=== PATIENT | female | born 1965 | race Caucasian/White ===

== ENCOUNTER 2023-06-01 05:58 | Day surgery (SDC) | payer BC ==
[~2023-06-01 05:58] MED LIST: Lactated Ringers 1,000 ML IV ONE
[2023-06-01] MEDS ORDERED: Lactated Ringers 1,000 ML IV SCH (06:30)
[2023-06-01] MEDS ORDERED: Propofol 200 MG/20 ML SDV ONE (06:50)
[2023-06-01] MEDS ORDERED: Midazolam 1 MG/ML 2 ML SDV ONE (06:50)
[2023-06-01] MEDS ORDERED: fentaNYL 50 MCG/ML SDV ONE (06:50)
[2023-06-01] MEDS ORDERED: Glycopyrrolate 0.2 MG/ML 2 ML SDV IVPUSH ONE (07:00)
[2023-06-01] MEDS ORDERED: Cyanocobalamin (Vitamin B12) 1,000 MCG/ML SDV IM ONE (07:00)
[2023-06-01] MEDS ORDERED: MVI, Adult with Vitamin K 10 ML, Thiamine 200 MG, Zinc/Copper/Manganese/Selenium 1 ML i... IV ONE ×4 (07:15)
== END 2023-06-01 10:00 | disposition home or self-care (01) ==
LOC: JP.SDS 05:58
PROVIDERS: ATTEND Surgery
DX: K91.850 Pouchitis (principal); K31.1 Adult hypertrophic pyloric stenosis; K31.89 Other diseases of stomach and duodenum; R60.9 Edema, unspecified; K21.9 Gastro-esophageal reflux disease without esophagitis; I10 Essential (primary) hypertension; F32.A Depression, unspecified; F41.9 Anxiety disorder, unspecified; Z98.84 Bariatric surgery status; Z88.5 Allergy status to narcotic agent; Z91.041 Radiographic dye allergy status; Z88.8 Allergy status to other drugs, medicaments and biological substances
CPT/HCPCS: 43235; J2250; J2704; J3010; J3411; J3420; J3490; J7120

== ENCOUNTER 2023-06-11 07:30 | Inpatient (IN) | payer BC ==
[2023-06-12] MEDS ORDERED: Scopolamine 1.5 MG Transdermal Patch TOP ONE (05:26)
[2023-06-12] MEDS ORDERED: Celecoxib 200 MG Cap PO ONE (05:26)
[2023-06-12] MEDS ORDERED: cefOXitin 2 GM in Sodium Chloride 0.9% 50 ML IV ONE ×2 (05:27→07:30)
[2023-06-12] MEDS ORDERED: Dextrose 5%-Lactated Ringers 1,000 ML IV SCH (05:30)
[2023-06-12] MEDS ORDERED: Bupivacaine 0.5% 50 ML MDV ONE (06:42)
[2023-06-12] MEDS ORDERED: Lidocaine 1% with EPINEPHrine 1:100,000 50 ML MDV ONE (06:42)
[2023-06-12] MEDS ORDERED: fentaNYL 250 MCG/5 ML SDV ONE ×2 (07:12→07:33)
[2023-06-12] MEDS ORDERED: Neostigmine Methylsulfate 1 MG/ML 5 ML Syringe ONE (07:15)
[2023-06-12] MEDS ORDERED: Glycopyrrolate 0.2 MG/ML 5 ML MDV ONE (07:15)
[2023-06-12] MEDS ORDERED: Succinylcholine 200 MG/10 ML MDV ONE (07:15)
[2023-06-12] MEDS ORDERED: Rocuronium 50 MG/5 ML Vial ONE (07:15)
[2023-06-12] MEDS ORDERED: Dexamethasone 4 MG/ML SDV ONE (07:15)
[2023-06-12] MEDS ORDERED: Propofol 200 MG/20 ML SDV ONE (07:15)
[2023-06-12] MEDS ORDERED: Ondansetron 4 MG/2 ML SDV ONE (07:15)
[2023-06-12] MEDS ORDERED: HYDROmorphone/Normal Saline 6 MG/30 ML PCA Vial IV PRN (07:16)
[2023-06-12] MEDS ORDERED: Ketamine 500 MG/5 ML MDV IV SCH (07:30)
[2023-06-12] MEDS ORDERED: Ketamine 18 MG in Sodium Chloride 0.9% 19.82 ML IV SCH (07:30)
[2023-06-12] MEDS ORDERED: Naloxone 0.4 MG/ML SDV IV PRN (08:00)
[2023-06-12] MEDS: Meropenem 500 MG SDV ONE ×2 (08:01→10:09)
[2023-06-12] MEDS ORDERED: fentaNYL 100 MCG/2 ML SDV ONE (08:28)
[2023-06-12] MEDS ORDERED: Lactated Ringers 1,000 ML ONE ×2 (08:39)
[2023-06-12] MEDS: Tranexamic Acid 1,000 MG in Sodium Chloride 0.9% 50 ML IV ONE ×2 (09:47→11:54)
[2023-06-12] MEDS ORDERED: Tranexamic Acid 1,000 MG in Sodium Chloride 0.9% 500 ML IV ONE (10:00)
[2023-06-12] MEDS ORDERED: Tranexamic Acid 1,000 MG in Sodium Chloride 0.9% 50 ML IV ONE (10:00)
[2023-06-12] MEDS ORDERED: Linezolid 600 MG/300 ML Premix Bag IRR ONE (10:09)
[2023-06-12] MEDS ORDERED: Metoclopramide 10 MG/2 ML SDV IVPUSH PRN (12:00)
[2023-06-12] MEDS ORDERED: Cyclobenzaprine 10 MG Tab PO PRN (12:00)
[2023-06-12] MEDS ORDERED: Labetalol 20 MG/4 ML Syringe IVPUSH PRN (12:00)
[2023-06-12] MEDS ORDERED: diphenhydrAMINE 50 MG/ML SDV IVPUSH PRN (12:00)
[2023-06-12] MEDS ORDERED: Ondansetron 4 MG/2 ML SDV IVPUSH PRN (12:00)
[2023-06-12] MEDS ORDERED: Acetaminophen 500 MG Tab PO PRN (12:00)
[2023-06-12] MEDS ORDERED: hydrOXYzine HCL 100 MG/2 ML SDV IM PRN (12:00)
[2023-06-12] MEDS ORDERED: Pantoprazole 40 MG Vial IVPUSH SCH (12:00)
[2023-06-12] MEDS: SCOPOLAMINE PATCH CHECK TOP SCH (13:41)
[2023-06-12] MEDS: cefOXitin 2 GM in Sodium Chloride 0.9% 50 ML IV SCH ×2 (14:38→20:32)
[2023-06-12] MEDS: Acetaminophen 500 MG Tab PO SCH ×2 (14:38→21:43)
[2023-06-12] MEDS: MVI, Adult with Vitamin K 10 ML, Thiamine 200 MG, Zinc/Copper/Manganese/Selenium 1 ML i... IV SCH ×4 (15:23)
[2023-06-12] MEDS: Heparin Sodium 5,000 Units/ML Vial SUBCUT SCH (20:32)
[2023-06-12] MEDS: Dextrose 5%-Lactated Ringers 1,000 ML IV SCH (21:44)
[2023-06-13] MEDS: cefOXitin 2 GM in Sodium Chloride 0.9% 50 ML IV SCH ×4 (02:44→19:37)
[2023-06-13] MEDS ORDERED: methylPREDNISolone Sodium Succinate 125 MG/2 ML SDV IVPUSH ONE (03:45)
[2023-06-13] MEDS ORDERED: Iopamidol 612 MG/ML 30 ML SDV PO ONE (04:00)
[2023-06-13] MEDS: Dextrose 5%-Lactated Ringers 1,000 ML IV SCH (04:03)
[2023-06-13 04:19] LABS: BASOPHILS PERCENT AUTO 0.1 % (0.1-1.3); HEMATOCRIT 27.9 % (34.3-46.0); HEMOGLOBIN 9.6 g/dL (11.2-15.5); IMMATURE GRAN ABSOLUTE AUTO 0.05 K/uL (0.00-0.23); IMMATURE GRAN PERCENT AUTO 0.3 % (0.0-0.7); LYMPHOCYTES ABSOLUTE AUTO 1.05 K/uL (0.8-3.3); LYMPHOCYTES PERCENT AUTO 6.3 % (11.4-47.7); MEAN CORPUSCULAR HGB CONC 34.4 g/dL (31.6-35.5); MEAN CORPUSCULAR VOLUME 95.9 fL (81.4-99.0); MONOCYTES ABSOLUTE AUTO 1.21 K/uL (0.20-0.90); MONOCYTES PERCENT AUTO 7.3 % (3.3-12.6); NEUTROPHILS ABSOLUTE AUTO 14.25 K/uL (1.0-7.6); PLATELET COUNT,PLT 173 K/uL (130-375); RED BLOOD CELL COUNT 2.91 M/uL (3.77-5.24); WHITE BLOOD CELL COUNT,WBC 16.6 K/uL (3.2-11.0)
[2023-06-13 04:53] LABS: BASOPHILS ABSOLUTE AUTO 0.01 K/uL (0.00-0.10)
[2023-06-13 04:58] LABS: ALANINE AMINOTRANSFERASE,ALT 53 U/L (12-78); ALBUMIN 2.9 g/dL (3.4-5.0); ALKALINE PHOSPHATASE 40 U/L (46-116); ASPARTATE AMNIOTRANSFERASE,AST 86 U/L (15-37); BILIRUBIN TOTAL 0.5 mg/dL (0.2-1.0); BLOOD UREA NITROGEN,BUN 9 mg/dL (7-18); CALCIUM 8.5 mg/dL (8.5-10.1); CARBON DIOXIDE,CO2 27 mmol/L (21-32); CHLORIDE,CL 101 mmol/L (100-108); EST CRCL DRUG DOSING (CG) 59.63 mL/min; ESTIMATED GFR 65 mL/min (>60); GLUCOSE RANDOM 169 mg/dL (74-106); MAGNESIUM 1.7 mg/dL (1.8-2.4); PHOSPHORUS 3.2 mg/dL (2.5-4.9); POTASSIUM,K 4.2 mmol/L (3.6-5.2); PRO B-TYPE NATRIUR PEPT,BNPPRO 119 pg/mL (5-125); PROTEIN TOTAL,TP 5.9 g/dL (6.4-8.2); SODIUM,NA 135 mmol/L (140-148)
[2023-06-13 05:00] LABS: ANION GAP 11.2 mmol/L (5.0-14.0)
[2023-06-13] MEDS: Acetaminophen 500 MG Tab PO SCH ×3 (05:50→21:36)
[2023-06-13] MEDS ORDERED: Ondansetron 4 MG Tab.DIS PO PRN (07:41)
[2023-06-13] MEDS: Cyclobenzaprine 10 MG Tab PO SCH ×3 (08:00→23:03)
[2023-06-13] MEDS: Heparin Sodium 5,000 Units/ML Vial SUBCUT SCH ×2 (08:01→19:34)
[2023-06-13] MEDS: Celecoxib 200 MG Cap PO SCH ×2 (08:02→21:37)
[2023-06-13] MEDS: Losartan 50 MG Tab PO SCH (08:03)
[2023-06-13] MEDS: Hydrochlorothiazide 12.5 MG Cap PO SCH (08:04)
[2023-06-13] MEDS: Sertraline 50 MG Tab PO SCH (08:05)
[2023-06-13] MEDS: SCOPOLAMINE PATCH CHECK TOP SCH (08:06)
[2023-06-13] MEDS: oxyCODONE 5 MG Tab PO PRN ×4 (08:59→23:03)
[2023-06-13] MEDS: Magnesium Sulfate/Water 2 GM in Premix Bag 1 BAG IV SCH ×3 (09:51→21:37)
[2023-06-13] MEDS: Pantoprazole 40 MG Delayed-Release Granules 1 Packet PO SCH (12:24)
[2023-06-13] MEDS: MVI, Adult with Vitamin K 10 ML, Thiamine 200 MG, Zinc/Copper/Manganese/Selenium 1 ML i... IV SCH ×4 (16:05)
[2023-06-14] MEDS: oxyCODONE 5 MG Tab PO PRN ×4 (04:05→20:31)
[2023-06-14] MEDS: Magnesium Sulfate/Water 2 GM in Premix Bag 1 BAG IV SCH ×4 (04:06→22:56)
[2023-06-14 04:22] LABS: HEMATOCRIT 21.4 % (34.3-46.0); HEMOGLOBIN 7.1 g/dL (11.2-15.5); MEAN CORPUSCULAR HEMOGLOBIN 32.3 pg (31.6-35.5); MEAN CORPUSCULAR HGB CONC 33.2 g/dL (31.6-35.5); MEAN CORPUSCULAR VOLUME 97.3 fL (81.4-99.0); RED BLOOD CELL COUNT 2.2 M/uL (3.77-5.24); WHITE BLOOD CELL COUNT,WBC 12.4 K/uL (3.2-11.0)
[2023-06-14 04:50] LABS: A/G RATIO 0.8 (1.2-2.2); ALANINE AMINOTRANSFERASE,ALT 35 U/L (12-78); ALBUMIN 2.4 g/dL (3.4-5.0); ALKALINE PHOSPHATASE 38 U/L (46-116); ANION GAP 5.3 mmol/L (5.0-14.0); ASPARTATE AMNIOTRANSFERASE,AST 51 U/L (15-37); BILIRUBIN TOTAL 0.3 mg/dL (0.2-1.0); BLOOD UREA NITROGEN,BUN 7 mg/dL (7-18); CALCIUM 8.1 mg/dL (8.5-10.1); CARBON DIOXIDE,CO2 29 mmol/L (21-32); CHLORIDE,CL 106 mmol/L (100-108); CREATININE 0.7 mg/dL (0.6-1.0); EST CRCL DRUG DOSING (CG) 85.19 mL/min; ESTIMATED GFR 100 mL/min (>60); GLUCOSE RANDOM 97 mg/dL (74-106); PHOSPHORUS 3.3 mg/dL (2.5-4.9); PROTEIN TOTAL,TP 5.3 g/dL (6.4-8.2); SODIUM,NA 140 mmol/L (140-148)
[2023-06-14] MEDS: Acetaminophen 500 MG Tab PO SCH ×3 (05:54→22:56)
[2023-06-14] MEDS ORDERED: Cyanocobalamin (Vitamin B12) 1,000 MCG/ML SDV IM ONE (09:00)
[2023-06-14] MEDS: Cyclobenzaprine 10 MG Tab PO SCH ×3 (10:14→23:01)
[2023-06-14] MEDS: Docusate Sodium 100 MG Cap PO SCH ×2 (10:19→20:32)
[2023-06-14] MEDS: Losartan 50 MG Tab PO SCH (10:20)
[2023-06-14] MEDS: Bisacodyl 5 MG Tab PO SCH ×2 (10:20→20:31)
[2023-06-14] MEDS: Hydrochlorothiazide 12.5 MG Cap PO SCH (10:21)
[2023-06-14] MEDS: SCOPOLAMINE PATCH CHECK TOP SCH (10:22)
[2023-06-14] MEDS: Sertraline 50 MG Tab PO SCH (10:23)
[2023-06-14] MEDS: Dextrose 5%-Lactated Ringers 1,000 ML IV SCH (11:20)
[2023-06-14] MEDS: hydrOXYzine HCl 25 MG Tab PO PRN ×2 (12:22→19:28)
[2023-06-14] MEDS: Pantoprazole 40 MG Delayed-Release Granules 1 Packet PO SCH (12:23)
[2023-06-14 17:00] LABS: BASOPHILS ABSOLUTE AUTO 0.03 K/uL (0.00-0.10); BASOPHILS PERCENT AUTO 0.3 % (0.1-1.3); EOSINOPHILS ABSOLUTE AUTO 0.03 K/uL (0.00-0.40); EOSINOPHILS PERCENT AUTO 0.3 % (0.0-5.4); HEMATOCRIT 26.2 % (34.3-46.0); HEMOGLOBIN 9.1 g/dL (11.2-15.5); IMMATURE GRAN ABSOLUTE AUTO 0.04 K/uL (0.00-0.23); IMMATURE GRAN PERCENT AUTO 0.4 % (0.0-0.7); LYMPHOCYTES ABSOLUTE AUTO 2.13 K/uL (0.8-3.3); LYMPHOCYTES PERCENT AUTO 18.8 % (11.4-47.7); MEAN CORPUSCULAR HEMOGLOBIN 32.2 pg (31.6-35.5); MEAN CORPUSCULAR HGB CONC 34.7 g/dL (31.6-35.5); MEAN CORPUSCULAR VOLUME 92.6 fL (81.4-99.0); MONOCYTES ABSOLUTE AUTO 0.94 K/uL (0.20-0.90); MONOCYTES PERCENT AUTO 8.3 % (3.3-12.6); NEUTROPHILS ABSOLUTE AUTO 8.15 K/uL (1.0-7.6); NEUTROPHILS PERCENT AUTO 71.9 % (40.0-78.1); PLATELET COUNT,PLT 144 K/uL (130-375); RED BLOOD CELL COUNT 2.83 M/uL (3.77-5.24); WHITE BLOOD CELL COUNT,WBC 11.3 K/uL (3.2-11.0)
[2023-06-15] MEDS: Dextrose 5%-Lactated Ringers 1,000 ML IV SCH (01:12)
[2023-06-15 04:19] LABS: HEMOGLOBIN 9.3 g/dL (11.2-15.5); MEAN CORPUSCULAR HGB CONC 34.4 g/dL (31.6-35.5); MEAN CORPUSCULAR VOLUME 92.8 fL (81.4-99.0); RED BLOOD CELL COUNT 2.91 M/uL (3.77-5.24); WHITE BLOOD CELL COUNT,WBC 10.5 K/uL (3.2-11.0)
[2023-06-15] MEDS: Magnesium Sulfate/Water 2 GM in Premix Bag 1 BAG IV SCH ×2 (04:51→09:35)
[2023-06-15 04:52] LABS: A/G RATIO 0.8 (1.2-2.2); ALANINE AMINOTRANSFERASE,ALT 29 U/L (12-78); ALBUMIN 2.4 g/dL (3.4-5.0); ALKALINE PHOSPHATASE 46 U/L (46-116); ANION GAP 6.9 mmol/L (5.0-14.0); ASPARTATE AMNIOTRANSFERASE,AST 41 U/L (15-37); BILIRUBIN TOTAL 0.6 mg/dL (0.2-1.0); BLOOD UREA NITROGEN,BUN 5 mg/dL (7-18); CALCIUM 8.2 mg/dL (8.5-10.1); CARBON DIOXIDE,CO2 30 mmol/L (21-32); CHLORIDE,CL 107 mmol/L (100-108); CREATININE 0.7 mg/dL (0.6-1.0); EST CRCL DRUG DOSING (CG) 85.19 mL/min; ESTIMATED GFR 100 mL/min (>60); GLUCOSE RANDOM 97 mg/dL (74-106); PHOSPHORUS 3.6 mg/dL (2.5-4.9); POTASSIUM,K 3.8 mmol/L (3.6-5.2); PROTEIN TOTAL,TP 5.5 g/dL (6.4-8.2); SODIUM,NA 144 mmol/L (140-148)
[2023-06-15] MEDS: oxyCODONE 5 MG Tab PO PRN (04:54)
[2023-06-15] MEDS: Acetaminophen 500 MG Tab PO SCH ×2 (04:55→05:07)
[2023-06-15] MEDS: Cyclobenzaprine 10 MG Tab PO SCH (09:33)
[2023-06-15] MEDS: Docusate Sodium 100 MG Cap PO SCH (09:34)
[2023-06-15] MEDS: Sertraline 50 MG Tab PO SCH (09:35)
[2023-06-15] MEDS: Hydrochlorothiazide 12.5 MG Cap PO SCH (09:35)
[2023-06-15] MEDS: Losartan 50 MG Tab PO SCH (09:35)
[2023-06-15] MEDS: Bisacodyl 5 MG Tab PO SCH (09:35)
== END 2023-06-15 09:50 | disposition home or self-care (01) | DRG 220 ==
LOC: JP.SDSSCHI 06-12 05:33 → JP.MS 06-12 10:45
PROVIDERS: ADMIT Surgery; ATTEND Surgery
PROC: 0DQ50ZZ Repair Esophagus, Open Approach (ICD-10-PCS; 2023-06-12)
PROC: 0DS80ZZ Reposition Small Intestine, Open Approach (ICD-10-PCS; 2023-06-12)
PROC: 0DB80ZZ Excision of Small Intestine, Open Approach (ICD-10-PCS; 2023-06-12)
PROC: 0WQF0ZZ Repair Abdominal Wall, Open Approach (ICD-10-PCS; 2023-06-12)
PROC: 0BQT0ZZ Repair Diaphragm, Open Approach (ICD-10-PCS; 2023-06-12)
PROC: 0DQA0ZZ Repair Jejunum, Open Approach (ICD-10-PCS; principal; 2023-06-12 07:15)
DX: K91.89 Other postprocedural complications and disorders of digestive system (principal); K31.1 Adult hypertrophic pyloric stenosis; I10 Essential (primary) hypertension; F32.5 Major depressive disorder, single episode, in full remission; F41.9 Anxiety disorder, unspecified; K21.9 Gastro-esophageal reflux disease without esophagitis; E78.2 Mixed hyperlipidemia; R68.81 Early satiety; K52.9 Noninfective gastroenteritis and colitis, unspecified; E53.8 Deficiency of other specified B group vitamins; G43.909 Migraine, unspecified, not intractable, without status migrainosus; K44.9 Diaphragmatic hernia without obstruction or gangrene; K43.0 Incisional hernia with obstruction, without gangrene; Z98.84 Bariatric surgery status; Z86.010 Personal history of colon polyps; Z98.890 Other specified postprocedural states; Z98.51 Tubal ligation status; Z79.899 Other long term (current) drug therapy; Z88.5 Allergy status to narcotic agent
CPT/HCPCS: 36415; 36430; 71046; 71046-26; 74240; 74240-26; 80053; 83735; 83880; 84100; 85025; 85027; 86850; 86900; 86901; 86920; 86922; 88302; 88307; A9270-GY; C9113; J0171; J0330; J0694; J1100; J1170; J1644; J2020; J2185; J2405; J2704; J2710; J2795; J2930; J3010; J3411; J3420; J3475; J3490; J7120; J7121; P9016